=== PATIENT | female | born 1935 | race Caucasian/White ===

== ENCOUNTER → 2016-09-19 | Outpatient (CLI) | payer MEDICARE, OTHER | END | disposition home or self-care (01) | LOC: LAB.O 10:51 | PROVIDERS: ATTEND Nurse Practitioner Family | DX: M06.9 Rheumatoid arthritis, unspecified (principal); Z79.899 Other long term (current) drug therapy ==

== ENCOUNTER → 2016-10-26 | Outpatient (CLI) | payer MEDICARE, OTHER | END | disposition home or self-care (01) | LOC: GMAJ 10:19 | PROVIDERS: ATTEND Family Medicine | DX: E53.8 Deficiency of other specified B group vitamins (principal) ==

== ENCOUNTER → 2017-01-04 | Outpatient (CLI) | payer MEDICARE, OTHER ==
--- NOTE | 2017-01-04 13:03 | RAD ---
EXAM DESCRIPTION: Knee,Left Complete CLINICAL HISTORY: KNEE PAIN COMPARISON: None. IMPRESSION: 4 standing views of the left knee shows postsurgical changes from knee arthroplasty with cement fixation of the tibial and femoral components. No complicating features are identified. The osseous structures are diffusely osteopenic. Soft tissues are unremarkable. No obvious suprapatellar joint effusion is seen. Electronically signed by: Chad Ruano MD 01/04/2017 1:02 PM CDT
== END ==
LOC: RAD 08:21
PROVIDERS: ATTEND Orthopaedic Surgery
DX: M25.562 Pain in left knee (principal); Z96.652 Presence of left artificial knee joint

== ENCOUNTER → 2017-04-25 | Outpatient (CLI) | payer MEDICARE, OTHER | END | disposition home or self-care (01) | LOC: LAB.O 16:37 | PROVIDERS: ATTEND Nurse Practitioner Family | DX: M06.9 Rheumatoid arthritis, unspecified (principal); Z79.899 Other long term (current) drug therapy ==

== ENCOUNTER → 2017-07-24 | Outpatient (CLI) | payer MEDICARE, OTHER | LOC: LAB.O 14:11 | PROVIDERS: ATTEND Nurse Practitioner Family | DX: M06.9 Rheumatoid arthritis, unspecified (principal); Z79.899 Other long term (current) drug therapy ==

== ENCOUNTER → 2017-07-26 | Outpatient (CLI) | payer MEDICARE, OTHER | LOC: GMAJ 10:37 | PROVIDERS: ATTEND Family Medicine | DX: E53.8 Deficiency of other specified B group vitamins (principal) ==

== ENCOUNTER → 2017-10-22 | Outpatient (CLI) | payer MEDICARE, OTHER | LOC: GMAJS 20:45 | PROVIDERS: ATTEND Physician Assistant | DX: N30.00 Acute cystitis without hematuria (principal) ==

== ENCOUNTER 2017-11-12 13:46 | Emergency (ER) | payer MEDICARE, OTHER ==
[2017-11-12 14:00] VITALS: TEMP 97.4
[2017-11-12] MEDS ORDERED: IBUPROFEN 200 MG TAB PO ONE (14:05)
[2017-11-12] MEDS ORDERED: ETOMIDATE INJECTION 2 MG/ML 20ML VIAL IV ONE (14:52)
--- NOTE | 2017-11-12 14:57 | RAD ---
EXAM DESCRIPTION: Humerus,Left CLINICAL HISTORY: fall COMPARISON: None FINDINGS: 2 view(s) submitted. There is inferior dislocation of the left humerus head. There is a possible fracture of the inferior rim of the glenoid, versus degenerative change. IMPRESSION: Left humerus head dislocation.. Electronically signed by: Rickey Alvarez 11/12/2017 2:56 PM CDT
--- NOTE | 2017-11-12 14:59 | RAD ---
EXAM DESCRIPTION: Shoulder,Left 2 or More Views CLINICAL HISTORY: fall COMPARISON: None FINDINGS: 2 view(s) submitted. Inferior left humerus head dislocation is again seen. There is a probable glenoid fracture. IMPRESSION: Left humerus head dislocation. Probable subtle glenoid fracture. Electronically signed by: Rickey Alvarez 11/12/2017 2:57 PM CDT
[2017-11-12] MEDS ORDERED: MORPHINE SULFATE INJ 10 MG/ML VIAL IV ONE (15:13)
--- NOTE | 2017-11-12 15:34 | RAD ---
EXAM DESCRIPTION: Knee,Left 2 or More Views CLINICAL HISTORY: Fall COMPARISON: 01/04/2017 FINDINGS: 2 view(s) submitted. Prosthetic left knee appears intact and in anatomic alignment. No fracture or dislocation is identified. Bone marrow attenuation is unremarkable. No radiopaque foreign body is identified. IMPRESSION: No acute fracture or dislocation. Electronically signed by: Rickey Alvarez 11/12/2017 3:33 PM CDT
--- NOTE | 2017-11-12 15:35 | RAD ---
EXAM DESCRIPTION: Shoulder,Left 1 View CLINICAL HISTORY: Post reduction COMPARISON: Same day 1410 hours FINDINGS: One view(s) submitted. No definite fracture or dislocation is identified. Bone marrow attenuation is unremarkable. No radiopaque foreign body is identified. IMPRESSION: Successful reduction of left shoulder dislocation. One Electronically signed by: Rickey Alvarez 11/12/2017 3:34 PM CDT
--- NOTE | 2017-11-12 16:19 | ED.PDOC ---
History of Present Illness - General Chief Complaint: Trauma Stated Complaint: fall Time Seen by Provider: 11/12/17 14:00 Source: patient Exam Limitations: no limitations - History of Present Illness Initial Comments: the patient is an 82-year-old female presenting to the emergency room with left shoulder pain after a fall at [facility]. There is some lengthening of the arm. She is neurovascularly intact. There is some deformity of the shoulder. Timing/Duration: 1/2 hour Severity: moderate Improving Factors: nothing Worsening Factors: movement Associated Symptoms: denies symptoms Allergies/Adverse Reactions: Allergies NO KNOWN ALLERGY Allergy (Verified 11/12/17 14:01) Home Medications: Ambulatory Orders Acetaminophen [Tylenol Adult Liquid] 500 mg PO PRN PRN 10/21/13 Alendronate Sodium [Fosamax] 70 mg PO ONCE 10/21/13 Aspirin [Aspirin EC Lo-Dose] 81 mg PO DAILY 10/21/13 Citalopram Hydrobromide 40 mg PO HS 10/21/13 Clonazepam 0.5 mg PO BID 10/21/13 Folic Acid 1 mg PO AM 10/21/13 Ocszmovpwee-Lrgpwtdfpmn-Mju C- [Glucosamine Chondroitin 1] 1 cap PO DAILY Methotrexate Sodium [Methotrexate] 5 mg PO ONCE 10/21/13 Pravastatin Sodium 10 mg PO HS 10/21/13 Primidone 100 mg PO HS 10/21/13 Tramadol HCl 50 mg PO TID 10/21/13 HYDROcodone 5MG/APAP 325MG [[place] 5/325] 1 - 2 tab PO Q4-6H PRN #0 tab 10/27/13 Rivaroxaban [Xarelto] 10 mg PO QD #0 tab 10/27/13 Review of Systems - Review of Systems Constitutional: States: no symptoms reported EENTM: States: no symptoms reported Respiratory: States: no symptoms reported Cardiology: States: no symptoms reported Gastrointestinal/Abdominal: States: no symptoms reported Genitourinary: States: no symptoms reported Musculoskeletal: States: see HPI Skin: States: no symptoms reported Neurological: States: no symptoms reported Endocrine: States: no symptoms reported All other Systems: No Change from Baseline Past Medical History (General) - Patient Medical History Hx Cardiac Disorders: No Hx Congestive Heart Failure: No Hx Diabetes: No Hx Cancer: Yes - ovarian Hx MRSA: No Surgical History: tonsillectomy, Hysterectomy, other - Vaccination History Hx Influenza Vaccination: Yes Hx Pneumococcal Vaccination: Yes - Social History Hx Tobacco Use: No Hx Alcohol Use: No Hx Substance Use: No Hx Substance Use Treatment: No Hx Depression: Yes Hx Physical Abuse: No Hx Emotional Abuse: No - Female History Patient : No Family Medical History - Family History Mother Family History: Unknown Living Status: Hx Family Cancer: Yes Physical Exam - Physical Exam General Appearance: Alert, Comfortable, No apparent distress Eye Exam: bilateral normal Ears, Nose, Throat: hearing grossly normal, normal ENT inspection Neck: supple, normal inspection Respiratory: lungs clear, normal breath sounds, no respiratory distress, no accessory muscle use Cardiovascular/Chest: normal peripheral pulses, no edema, other - regular rate Peripheral Pulses: radial,right: 2+, radial,left: 2+, dorsalis pedis,right: 2+, dorsalis pedis,left: 2+ Gastrointestinal/Abdominal: soft Rectal Exam: deferred Back Exam: no CVA tenderness, no vertebral tenderness Extremity: other - limited range of motion of left shoulder. Mild pain to the anterior knee were she fell. This is on the left. 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 Comments: Vital Signs - 24 hr 11/12/17 11/12/17 11/12/17 13:50 14:54 15:00 Temperature 97.4 F L Pulse Rate [ 70 75 pulse ox] Respiratory 20 24 20 Rate Blood Pressure 220/82 234/96 [Right Arm] O2 Sat by Pulse 95 94 L Oximetry Progress - Progress Progress: 11/12/17 16:16 the patient is a 82-year-old female presenting to the emergency room secondary to a dislocated left shoulder after a fall. X-ray of the shoulder confirms the dislocation. X-ray of the left knee shows no evidence of fracture dislocation. after risks and benefits of the reduction attempts were explained , the patient and family did agree. 8 mg of etomidate were given for moderate sedation. The patient was monitored throughout the procedure. Respiratory therapy was present. The patient was preoxygenated. The shoulder reduced easily with minimal pressure. Postreduction films showed adequate reduction. The patient is neurovascularly intact. At this point in time we are not going to place the patient in a shoulder immobilizer or sling in case she needs to use the arm to stabilize herself to prevent further injuries. She needs to follow up with orthopedics in 2-3 weeks for reevaluation. Motrin or Tylenol use for pain. ER warnings were given for any acute worsening. Departure - Departure Clinical Impression: Shoulder dislocation Qualifiers: Encounter type: initial encounter Laterality: left Qualified Code(s): S43.005A - Unspecified dislocation of left shoulder joint, initial encounter Disposition: Discharge to Home or Self Care Condition: Fair Departure Forms: ED Discharge - Pt. Copy, Patient Portal Self Enrollment Diet: regular diet Activity: no pushing/pulling with affected limb Referrals: Matheus Goff MD [Primary Care Provider] - 1-2 Weeks Home Medications: Ambulatory Orders Acetaminophen [Tylenol Adult Liquid] 500 mg PO PRN PRN 10/21/13 Alendronate Sodium [Fosamax] 70 mg PO ONCE 10/21/13 Aspirin [Aspirin EC Lo-Dose] 81 mg PO DAILY 10/21/13 Citalopram Hydrobromide 40 mg PO HS 10/21/13 Clonazepam 0.5 mg PO BID 10/21/13 Folic Acid 1 mg PO AM 10/21/13 Hobknkcthdj-Sxvstatoays-Lru C- [Glucosamine Chondroitin 1] 1 cap PO DAILY Methotrexate Sodium [Methotrexate] 5 mg PO ONCE 10/21/13 Pravastatin Sodium 10 mg PO HS 10/21/13 Primidone 100 mg PO HS 10/21/13 Tramadol HCl 50 mg PO TID 10/21/13 HYDROcodone 5MG/APAP 325MG [[place] 5/325] 1 - 2 tab PO Q4-6H PRN #0 tab 10/27/13 Rivaroxaban [Xarelto] 10 mg PO QD #0 tab 10/27/13 Additional Instructions: the patient is a 82-year-old female presenting to the emergency room secondary to a dislocated left shoulder after a fall. X-ray of the shoulder confirms the dislocation. X-ray of the left knee shows no evidence of fracture dislocation. the patient underwent moderate sedation with etomidate. The shoulder reduced easily with minimal pressure. Postreduction films showed adequate reduction. The patient is neurovascularly intact. At this point in time we are not going to place the patient in a shoulder immobilizer or sling in case she needs to use the arm to stabilize herself to prevent further injuries. She needs to follow up with orthopedics in 2-3 weeks for reevaluation. Motrin or Tylenol use for pain. ER warnings were given for any acute worsening.
[2017-11-12 16:32] VITALS: BP 179/65; O2SAT 96
== END 2017-11-12 16:32 | disposition home or self-care (01) ==
LOC: ER 13:46
DX: S43.035A Inferior dislocation of left humerus, initial encounter (principal); S80.02XA Contusion of left knee, initial encounter; F32.9 Major depressive disorder, single episode, unspecified; Z85.43 Personal history of malignant neoplasm of ovary; W19.XXXA Unspecified fall, initial encounter; Y92.513 Shop (commercial) as the place of occurrence of the external cause
CPT/HCPCS: 73020; 73030; 73060; 73560; 94770; J2270

== ENCOUNTER → 2017-12-24 | Outpatient (CLI) | payer MEDICARE, OTHER | LOC: GMAJ 16:34 | PROVIDERS: ATTEND Family Medicine | DX: N30.00 Acute cystitis without hematuria (principal) ==

== ENCOUNTER → 2017-12-25 | Outpatient (CLI) | payer MEDICARE, OTHER | LOC: YCHH 10:33 | PROVIDERS: ATTEND Family Medicine | DX: M06.9 Rheumatoid arthritis, unspecified (principal); D51.0 Vitamin B12 deficiency anemia due to intrinsic factor deficiency; E78.5 Hyperlipidemia, unspecified; E55.9 Vitamin D deficiency, unspecified; D64.9 Anemia, unspecified ==

== ENCOUNTER → 2018-01-10 | Outpatient (CLI) | payer MEDICARE, OTHER ==
--- NOTE | 2018-01-11 08:08 | MRI ---
Study: MRI of the Left Shoulder. Indication: SPRAIN OF LEFT ROTATOR CUFF CAPSULE Technique: Multiplanar, multi sequence MRI of the left shoulder was obtained without intravenous contrast. Comparison: None. 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 Type II acromion with mild lateral downsloping as well as mild inferior downsloping anterior margin. Small volume subacromial/subdeltoid bursal fluid. Full-thickness tearing anterior two thirds supraspinatus tendon insertion with high-grade articular tearing throughout the remainder of the supraspinatus tendon and anterior half of the infraspinatus tendon. Torn articular fibers retracted to the level of the mid acromion. Subscapularis tendinosis. Teres minor tendon intact. Mild atrophy and grade 1 fatty infiltration rotator cuff musculature. Long head biceps tendinosis. Circumferential labral truncation noted. Humeral head normally located. There is marrow edema at the greater tuberosity which may contusive related. No conventional Hill-Sachs fracture identified. Moderate-sized glenohumeral joint effusion with mild osteoarthritis. There is marrow edema in the anterior inferior glenoid. This can indicate sequela of an osseous Bankart lesion or occult overlying grade 4 chondral loss. A sprain of the inferior glenohumeral ligament noted which is edematous and slightly attenuated. Impression: Full-thickness tearing anterior two thirds supraspinatus tendon with high-grade articular tearing remainder of the supraspinatus tendon and anterior half infraspinatus tendon. Subscapularis tendinosis. Mild atrophy and grade 1 fatty infiltration rotator cuff musculature. Long head biceps tendinosis. Marrow edema lateral margin humeral head which may be contusive in etiology or reactive to the rotator cuff tendon tearing. No conventional Hill-Sachs fracture identified. Mild marrow edema anterior inferior glenoid which could indicate sequela of an osseous Bankart lesion/contusion or occult overlying grade 4 chondral loss. The humeral head is normally located. Circumferential labral truncation noted. Small glenohumeral joint effusion with mild osteoarthritis. Inferior glenohumeral ligament sprain. 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 Electronically signed by: Fernando Peck MD 01/11/2018 8:06 AM CDT
== END ==
LOC: MRI 09:00
PROVIDERS: ATTEND Family Medicine
DX: M75.102 Unspecified rotator cuff tear or rupture of left shoulder, not specified as traumatic (principal); M19.012 Primary osteoarthritis, left shoulder

== ENCOUNTER → 2018-03-18 | Outpatient (CLI) | payer MEDICARE, OTHER | LOC: LAB.O 15:08 | PROVIDERS: ATTEND Nurse Practitioner Family | DX: M06.9 Rheumatoid arthritis, unspecified (principal); Z79.899 Other long term (current) drug therapy ==

== ENCOUNTER 2018-04-26 07:43 | Emergency (ER) | payer MEDICARE, OTHER ==
[2018-04-26] MEDS ORDERED: SODIUM CHLORIDE 0.9% 1000ML 1,000 ML IVS ONE (07:52)
[2018-04-26] MEDS ORDERED: ONDANSETRON INJ 4 MG/2 ML VIAL IV ONE (07:52)
--- NOTE | 2018-04-26 08:04 | ED.PDOC ---
History of Present Illness - General Chief Complaint: General Stated Complaint: generalized weakness;N/V Time Seen by Provider: 04/26/18 07:49 Source: patient, family - Exam Limitations: no limitations - History of Present Illness Initial Comments: Nimco Burrows 82 y/o feamle brought by EMS with generalized weakness yesterday then had some episodes of nausea/vomiting but no diarrhea early this AM EMS stated noted her to be moving around at home.Denies hematemesis ,melena, abdominal pain. Timing/Duration: 24 hours Severity: moderate Improving Factors: nothing Worsening Factors: eating Associated Symptoms: loss of appetite Allergies/Adverse Reactions: Allergies NO KNOWN ALLERGY Allergy (Verified 11/12/17 14:01) Home Medications: Ambulatory Orders Acetaminophen [Tylenol Adult Liquid] 500 mg PO PRN PRN 10/21/13 Alendronate Sodium [Fosamax] 70 mg PO ONCE 10/21/13 Aspirin [Aspirin EC Lo-Dose] 81 mg PO DAILY 10/21/13 Citalopram Hydrobromide 40 mg PO HS 10/21/13 Clonazepam 0.5 mg PO BID 10/21/13 Folic Acid 1 mg PO AM 10/21/13 Ruxslrfrjcp-Jukxnnkoqhj-Xyh C- [Glucosamine Chondroitin 1] 1 cap PO DAILY Methotrexate Sodium [Methotrexate] 5 mg PO ONCE 10/21/13 Pravastatin Sodium 10 mg PO HS 10/21/13 Primidone 100 mg PO HS 10/21/13 Tramadol HCl 50 mg PO TID 10/21/13 HYDROcodone 5MG/APAP 325MG [[place] 5/325] 1 - 2 tab PO Q4-6H PRN #0 tab 10/27/13 Rivaroxaban [Xarelto] 10 mg PO QD #0 tab 10/27/13 Ondansetron [Zofran Odt] 4 mg PO Q8HRS PRN #10 tab 04/26/18 Review of Systems - Review of Systems Constitutional: States: no symptoms reported EENTM: States: no symptoms reported Respiratory: States: no symptoms reported Cardiology: States: no symptoms reported Gastrointestinal/Abdominal: States: see HPI Genitourinary: States: no symptoms reported Musculoskeletal: States: no symptoms reported Skin: States: no symptoms reported Neurological: States: no symptoms reported Past Medical History (General) - Patient Medical History Hx Cardiac Disorders: No Hx Congestive Heart Failure: No Hx Diabetes: No Hx Cancer: Yes - ovarian Hx MRSA: No Surgical History: other - hysterectomy,knee left - Vaccination History Hx Influenza Vaccination: Yes Hx Pneumococcal Vaccination: Yes - Social History Hx Tobacco Use: No Hx Alcohol Use: No Hx Substance Use: No Hx Substance Use Treatment: No Hx Depression: Yes Hx Physical Abuse: No Hx Emotional Abuse: No - Activities of Daily Living Patient Lives Alone: No Grooming Ability: Independent Eating (Feeding) Ability: Independent Toileting Ability: Independent - Female History Patient : No Family Medical History - Family History Mother Family History: Unknown Living Status: Hx Family Cancer: Yes - mom-colon ca;dad-brain ca Physical Exam - Physical Exam General Appearance: Alert, Comfortable, No apparent distress Eye Exam: bilateral normal Ears, Nose, Throat: hearing grossly normal, normal ENT inspection, normal pharynx Neck: non-tender, full range of motion, supple, normal inspection Respiratory: chest non-tender, lungs clear, normal breath sounds Cardiovascular/Chest: normal peripheral pulses, regular rate, rhythm, no murmur Peripheral Pulses: radial,right: 2+, radial,left: 2+ Gastrointestinal/Abdominal: normal bowel sounds, non tender, soft, no organomegaly Back Exam: no CVA tenderness, no vertebral tenderness Extremity: no pedal edema, no calf tenderness Neurologic: no motor/sensory deficits, alert Skin Exam: normal color, warm/dry Lymphatic: no adenopathy Progress - Progress Progress: 04/26/18 08:43 Vital Signs - 8 hr 04/26/18 04/26/18 07:44 08:41 Temperature 100.3 F H Pulse Rate [ 89 83 Apical] Respiratory 20 18 Rate Blood Pressure 106/85 148/71 [Left Arm] O2 Sat by Pulse 94 L 97 Oximetry - Results/Orders Results/Orders: 04/26/18 07:52 IV Care:Saline Lock per Protoc QSHIFT 04/26/18 08:45 EKG STAT 04/26/18 11:55 Abdoment/Pelvis w/o Contrast [CT] Stat Laboratory Results - last 24 hr 04/26/18 04/26/18 04/26/18 08:18 10:32 11:10 WBC 5.9 RBC 3.82 L Hgb 12.2 Hct 36.9 MCV 96.6 MCH 31.9 H MCHC 33.1 RDW 14.9 H Plt Count 163 MPV 7.2 L Absolute Neuts (auto) 5.00 Absolute Lymphs (auto) 0.30 L Absolute Monos (auto) 0.50 Absolute Eos (auto) 0.00 Absolute Basos (auto) 0.00 Neutrophils % 85.9 H Lymphocytes % 5.4 L Monocytes % 7.8 Eosinophils % 0.5 L Basophils % 0.4 PT 9.3 INR 0.93 PTT (SP) 23.9 Sodium 137 Potassium 3.2 L Chloride 103 Carbon Dioxide 27 Anion Gap 10.2 L BUN 14 Creatinine 0.57 L BUN/Creatinine Ratio 24.6 H Random Glucose 108 H Serum Osmolality 274.8 L Calcium 8.7 Magnesium 2.1 Total Bilirubin 0.5 Direct Bilirubin 0.1 Indirect Bilirubin 0.4 AST 42 ALT 28 Alkaline Phosphatase 92 Creatine Kinase 104 CK-MB (CK-2) 0.9 CK-MB (CK-2) % Not Reportable Troponin I 0.11 H* < 0.02 Serum Total Protein 6.4 Albumin 3.7 Lipase 14 L Urine Color Yellow Urine Appearance Clear Urine pH 7.0 Ur Specific [place] 1.015 Urine Protein 30 Urine Glucose (UA) Negative Urine Ketones Trace Urine Blood Large H Urine Nitrite Negative Urine Bilirubin Negative Urine Urobilinogen 0.2 Ur Leukocyte Esterase Negative Urine RBC 10-20 H Urine WBC 0 Ur Epithelial Cells 3-5 Urine Bacteria Rare No further troponin elevation after repeat test went back to normal level - EKG/XRAY/CT EKG: Sinus, nonspecific ST T wave Chg - anterior leads Comments: HR-83 XRAY: chest - and abdomen -no acute findings noted CT Ordered: Yes - abd/p-no acute findings Departure - Departure Clinical Impression: Hypokalemia due to loss of potassium Nausea & vomiting Qualifiers: Vomiting type: unspecified Vomiting Intractability: non-intractable Qualified Code(s): R11.2 - Nausea with vomiting, unspecified Time of Disposition: 13:41 Disposition: Discharge to Home or Self Care Condition: Fair Departure Forms: ED Discharge - Pt. Copy, Patient Portal Self Enrollment Instructions: Nausea and Vomiting, Adult (DC) Diet: bland diet, other - AVOID GREASY SPICY FOODS until better ;May have chicken/beef broth Referrals: Matheus Goff MD [Primary Care Provider] - 1-2 Weeks Prescriptions: Ondansetron [Zofran Odt] 4 mg PO Q8HRS PRN #10 tab PRN Reason: Nausea Home Medications: Ambulatory Orders Acetaminophen [Tylenol Adult Liquid] 500 mg PO PRN PRN 10/21/13 Alendronate Sodium [Fosamax] 70 mg PO ONCE 10/21/13 Aspirin [Aspirin EC Lo-Dose] 81 mg PO DAILY 10/21/13 Citalopram Hydrobromide 40 mg PO HS 10/21/13 Clonazepam 0.5 mg PO BID 10/21/13 Folic Acid 1 mg PO AM 10/21/13 Ayuihjjiqeo-Czdduvfgmxt-Sdi C- [Glucosamine Chondroitin 1] 1 cap PO DAILY Methotrexate Sodium [Methotrexate] 5 mg PO ONCE 10/21/13 Pravastatin Sodium 10 mg PO HS 10/21/13 Primidone 100 mg PO HS 10/21/13 Tramadol HCl 50 mg PO TID 10/21/13 HYDROcodone 5MG/APAP 325MG [[place] 5/325] 1 - 2 tab PO Q4-6H PRN #0 tab 10/27/13 Rivaroxaban [Xarelto] 10 mg PO QD #0 tab 10/27/13 Ondansetron [Zofran Odt] 4 mg PO Q8HRS PRN #10 tab 04/26/18 Additional Instructions: Return to emergency room if symptoms worsens
[2018-04-26 08:05] VITALS: TEMP 100.3
--- NOTE | 2018-04-26 08:33 | RAD ---
EXAM DESCRIPTION: Abdomen 1 View CLINICAL HISTORY: N/V COMPARISON: None. IMPRESSION: Single AP portable supine view of the abdomen shows air-filled nondilated loops of small bowel and colon throughout the abdomen. Bowel gas pattern is nonspecific and nonobstructive. No abnormal calcifications are seen. Moderate to severe disc degenerative changes and dextrocurvature of the lumbar spine is seen. Surgical clips in the mid to lower abdomen and pelvis is seen. Electronically signed by: Chad Ruano MD 04/26/2018 8:32 AM [facility]
[2018-04-26] MEDS ORDERED: ASPIRIN (CHEWABLE) 81 MG TAB PO ONE (08:44)
--- NOTE | 2018-04-26 09:19 | RAD ---
EXAM DESCRIPTION: Chest,1 View CLINICAL HISTORY: N/V COMPARISON: None. IMPRESSION: Single AP portable upright view of the chest shows mild enlargement of the cardiac silhouette without pulmonary vascular congestion. Tortuosity the thoracic aorta is seen. Lungs are normally aerated and clear. No obvious pleural effusion or pneumothorax is seen. Electronically signed by: Chad Ruano MD 04/26/2018 9:18 AM [facility]
[2018-04-26] MEDS ORDERED: SODIUM CHLORIDE 0.9% 500ML 500 ML IVS ONE (11:36)
--- NOTE | 2018-04-26 13:31 | CT ---
EXAM DESCRIPTION: Abdomen t/Pelvis w/o Contrast CLINICAL HISTORY: 82 years, 82 years, Female, Female, hematuria/N/V COMPARISON: October 12, 2009 TECHNIQUE: CT of the abdomen and pelvis is performed according to our non contrast protocol This exam was performed according to our departmental dose-optimization program, which includes automated exposure control, adjustment of the mA and/or kV according to patient size and/or use of iterative reconstruction technique. FINDINGS: Left lung is essentially clear and a patchy infiltrate or atelectasis in the medial posterior right lung base without pleural effusion is present above the level of the costophrenic angle. A small sliding-type hiatal hernia is noted. The unenhanced liver is upper normal in size with large distended gallbladder without obvious stones or ductal dilation. A normal sized spleen with a tiny granulomatous calcification anteriorly is noted. The unenhanced pancreas is grossly unremarkable without obvious cystic or solid disease. Small normal adrenal glands are noted. The right kidney and left kidney demonstrate no evidence of intrarenal stone disease or hydronephrosis. No obvious cystic or solid mass on unenhanced renal imaging is noted. Aortic calcification without aneurysm is evident and significant retroperitoneal adenopathy is not apparent. Small and large bowel caliber is normal. Considerable stool in the rectum sigmoid and left colon suggests an element of constipation. Left-sided colonic diverticulosis is present. Moderate motion artifact suggest a significant bowel peristalsis is present. No inflammatory changes in the left lower quadrant or right lower quadrant is noted in no evidence of obstruction seen. The bladder is normally distended and the vaginal cuff normal in appearance with absence of the uterus. No adnexal masses or pelvic fluid collections or inguinal hernias or pelvic sidewall disease noted. No abdominal or pelvic ascites is noted. The anterior abdominal wall is intact. Moderately advanced degenerative changes and dextroscoliosis of the lumbar spine with multilevel disc space narrowing is apparent. Bony destructive changes are not apparent. IMPRESSION: 1. Noncontrast imaging demonstrates normal renal outlines without evidence of stone disease or hydronephrosis or bladder abnormality. 2. Degenerative changes and dextroscoliosis of the lumbar spine without evidence of fracture or bony metastatic disease. 3. Patchy infiltrate in the medial posterior right lower lobe without pleural effusion without extension into the posterior costophrenic angle. The left lung is clear. 4. Stool-filled rectum and sigmoid and left colon with diverticulosis suggesting an element of constipation but no evidence of obstruction. Electronically signed by: Kaiser Stevenson MD 04/26/2018 1:29 PM [facility]
[2018-04-26] MEDS ORDERED: IBUPROFEN 200 MG TAB PO ONE (14:37)
[2018-04-26] MEDS ORDERED: ACETAMINOPHEN 325 MG TAB PO ONE (14:51)
[2018-04-26 14:59] VITALS: BP 153/82; O2SAT 94
== END 2018-04-26 15:45 | disposition home or self-care (01) ==
LOC: ER 07:43
DX: R11.2 Nausea with vomiting, unspecified (principal); E87.6 Hypokalemia; F32.9 Major depressive disorder, single episode, unspecified; Z85.43 Personal history of malignant neoplasm of ovary; Z79.82 Long term (current) use of aspirin; Z79.899 Other long term (current) drug therapy
CPT/HCPCS: 36415; 71045; 74018; 74176; 80048; 80076; 81001; 82550; 82553; 83690; 84484; 85025; 85610; 85730; 87502; 93005; J2405; J7030; J7040

== ENCOUNTER → 2018-05-14 | Outpatient (CLI) | payer MEDICARE, OTHER | LOC: LAB.O 13:04 | PROVIDERS: ATTEND Nurse Practitioner Family | DX: M06.9 Rheumatoid arthritis, unspecified (principal) ==

== ENCOUNTER → 2019-01-30 | Outpatient (CLI) | payer MEDICARE, OTHER | LOC: LAB.O 12:03 | PROVIDERS: ATTEND Nurse Practitioner | DX: M06.9 Rheumatoid arthritis, unspecified (principal) ==

== ENCOUNTER 2019-08-04 18:08 | Emergency (ER) | payer MEDICARE, OTHER ==
[2019-08-04 18:53] VITALS: TEMP 98.1
--- NOTE | 2019-08-04 19:53 | CT ---
PROCEDURE: Cervical Spine CLINICAL HISTORY: 83 years Female fall in [employer], rt frontal scalp injury COMPARISON: None. TECHNIQUE: Contiguous axial images obtained through the cervical spine without IV contrast. Coronal and sagittal reformatted images obtained. This exam was performed according to our department optimization program which includes automated exposure control, adjustment of the mA and/or kv according to patient size and/or use of iterative reconstruction technique. FINDINGS: There is mild anterolisthesis of C4 on C5 which appears degenerative. Narrowing of the disc interspaces throughout the cervical spine with marginal osteophytosis and facet arthropathy. 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 No prevertebral soft tissue swelling. There is right neural foraminal narrowing at C2-3. Bilateral neural foraminal stenosis, severe, at C3-4. Marked facet arthropathy at C4-5 on the left with severe left and moderate right neural foraminal stenosis. C5-6 severe bilateral neural foraminal stenosis. C6-7: Bilateral neural foraminal stenosis. No acute fracture identified. IMPRESSION: No acute cervical spinal fracture is identified. Moderate spondylosis with neural foraminal stenosis at multiple levels Electronically signed by: Balbina Adan MD 08/04/2019 7:52 PM [employer]
--- NOTE | 2019-08-04 19:55 | CT ---
PROCEDURE: Head CLINICAL HISTORY: 83 years Female fall in [employer], rt frontal scalp injury COMPARISON: None. TECHNIQUE: Contiguous axial CT images obtained through the brain without IV contrast. This exam was performed according to our department optimization program which includes automated exposure control, adjustment of the mA and/or kv according to patient size and/or use of iterative reconstruction technique. FINDINGS: The ventricles and sulci are prominent consistent with atrophic changes. Microvascular ischemic changes. No midline shift or mass effect. No mass lesions. No acute hemorrhage. Atherosclerotic calcifications. 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 Soft tissue swelling over the right frontal scalp. No fluid or significant mucosal thickening in the visualized paranasal sinuses. No depressed calvarial fractures. IMPRESSION: Small amount of soft tissue swelling over the right frontal calvarium No acute intracranial abnormality is identified. Generalized atrophy with microvascular ischemic changes. Electronically signed by: Balbina Adan MD 08/04/2019 7:53 PM PHONE TRIAGE SPECIALIST
--- NOTE | 2019-08-04 20:09 | ED.PDOC ---
History of Present Illness - General Time Seen by Provider: 08/04/19 18:50 Source: patient Exam Limitations: no limitations - History of Present Illness Initial Comments: The patient is an 83-year-old female presented emergency room after having tripped and fallen at [facility]. The patient hit her head on the floor sustaining a frontal scalp. No loss of consciousness. No neurological changes. No new neck pain. No other injuries. The patient is pleasant and cooperative. Timing/Duration: 1/2 hour Severity: moderate Improving Factors: nothing Worsening Factors: nothing Associated Symptoms: headaches - Mild Allergies/Adverse Reactions: Allergies NO KNOWN ALLERGY Allergy (Verified 11/12/17 14:01) Home Medications: Ambulatory Orders Acetaminophen [Tylenol Adult Liquid] 500 mg PO PRN PRN 10/21/13 Alendronate Sodium [Fosamax] 70 mg PO ONCE 10/21/13 Aspirin [Aspirin EC Lo-Dose] 81 mg PO DAILY 10/21/13 Citalopram Hydrobromide 40 mg PO HS 10/21/13 Clonazepam 0.5 mg PO BID 10/21/13 Folic Acid 1 mg PO AM 10/21/13 Kbyhdqymatx-Hxtfylfawqy-Knf C- [Glucosamine Chondroitin 1] 1 cap PO DAILY 10/21/13 Methotrexate Sodium [Methotrexate] 5 mg PO ONCE 10/21/13 Pravastatin Sodium 10 mg PO HS 10/21/13 Primidone 100 mg PO HS 10/21/13 Tramadol HCl 50 mg PO TID 10/21/13 HYDROcodone 5MG/APAP 325MG [[place] 5/325] 1 - 2 tab PO Q4-6H PRN #0 tab 10/27/13 Rivaroxaban [Xarelto] 10 mg PO QD #0 tab 10/27/13 Ondansetron [Zofran Odt] 4 mg PO Q8HRS PRN #10 tab 04/26/18 Review of Systems - Review of Systems Constitutional: States: no symptoms reported EENTM: States: no symptoms reported Respiratory: States: no symptoms reported Cardiology: States: no symptoms reported Gastrointestinal/Abdominal: States: no symptoms reported Genitourinary: States: no symptoms reported Musculoskeletal: States: no symptoms reported Skin: States: see HPI Neurological: States: headache Endocrine: States: no symptoms reported All other Systems: No Change from Baseline Past Medical History (General) - Patient Medical History Hx Cardiac Disorders: No Hx Congestive Heart Failure: No Hx Diabetes: No Hx Cancer: Yes - ovarian Hx MRSA: No - Vaccination History Hx Tetanus, Diphtheria Vaccination: No Hx Influenza Vaccination: Yes Hx Pneumococcal Vaccination: Yes - Social History Hx Tobacco Use: No Hx Chewing Tobacco Use: No Hx Alcohol Use: No Hx Substance Use: No Hx Substance Use Treatment: No Hx Depression: Yes Hx Physical Abuse: No Hx Emotional Abuse: No Hx Suspected Abuse: No - Female History Patient : No Family Medical History - Family History Mother Family History: Unknown Living Status: Hx Family Cancer: Yes - mom-colon ca;dad-brain ca Physical Exam - Physical Exam General Appearance: Alert, Comfortable, No apparent distress Eye Exam: bilateral normal Ears, Nose, Throat: hearing grossly normal, normal pharynx Neck: non-tender, supple Respiratory: lungs clear, normal breath sounds, no respiratory distress, no accessory muscle use Cardiovascular/Chest: normal peripheral pulses, regular rate, rhythm, no edema Peripheral Pulses: radial,right: 2+, radial,left: 2+ Gastrointestinal/Abdominal: non tender, soft Rectal Exam: deferred Back Exam: no vertebral tenderness Extremity: non-tender, no pedal edema, normal capillary refill Neurologic: metal pourer II-XII nml as tested, alert, normal mood/affect, oriented x 3 Skin Exam: normal color - With the exception of the right forehead hematoma Comments: Vital Signs - 24 hr 08/04/19 08/04/19 18:46 19:09 Temperature 98.1 F Pulse Rate [ 65 59 L Pulse Ox] Respiratory 20 14 Rate Blood Pressure 172/64 171/71 [R Arm] O2 Sat by Pulse [address] scan of the head shows no evidence of any acute intracranial pathology. The right forehead hematoma is noted. Progress - Progress Progress: 08/04/19 20:08 The patient is a 83-year-old female who tripped and fell at [facility]. The patient has sustained a right forehead hematoma. No laceration. CT scan of the head indicates no acute intracranial pathology. CT scan of the cervical spine shows no acute bony pathology, only extensive degenerative changes. Motrin or Tylenol can be used for discomfort if needed. ER warnings are given for any significant worsening. Keep routine follow-up with primary care doctor otherwise. [email or web address] [email or web address] [id number] Departure - Departure Clinical Impression: Traumatic hematoma of forehead Qualifiers: Encounter type: initial encounter Qualified Code(s): S00.83XA - Contusion of other part of head, initial encounter Disposition: Discharge to Home or Self Care Condition: Fair Instructions: Contusion (DC) Diet: regular diet Activity: increase activity as tolerated Referrals: Matheus Goff MD [Primary Care Provider] - 1-2 Weeks Home Medications: Ambulatory Orders Acetaminophen [Tylenol Adult Liquid] 500 mg PO PRN PRN 10/21/13 Alendronate Sodium [Fosamax] 70 mg PO ONCE 10/21/13 Aspirin [Aspirin EC Lo-Dose] 81 mg PO DAILY 10/21/13 Citalopram Hydrobromide 40 mg PO HS 10/21/13 Clonazepam 0.5 mg PO BID 10/21/13 Folic Acid 1 mg PO AM 10/21/13 Fcljlshzelj-Rsajoiyhvtj-Qih C- [Glucosamine Chondroitin 1] 1 cap PO DAILY 0 10/21/13 Methotrexate Sodium [Methotrexate] 5 mg PO ONCE 10/21/13 Pravastatin Sodium 10 mg PO HS 10/21/13 Primidone 100 mg PO HS 10/21/13 Tramadol HCl 50 mg PO TID 10/21/13 HYDROcodone 5MG/APAP 325MG [[place] 5/325] 1 - 2 tab PO Q4-6H PRN #0 tab 10/27/13 Rivaroxaban [Xarelto] 10 mg PO QD #0 tab 10/27/13 Ondansetron [Zofran Odt] 4 mg PO Q8HRS PRN #10 tab 04/26/18 Additional Instructions: The patient is a 83-year-old female who tripped and fell at [facility]. The patient has sustained a right forehead hematoma. No laceration. CT scan of the head indicates no acute intracranial pathology. CT scan of the cervical spine shows no acute bony pathology, only extensive degenerative changes. Motrin or Tylenol can be used for discomfort if needed. ER warnings are given for any significant worsening. Keep routine follow-up with primary care doctor otherwise.
[2019-08-04 20:26] VITALS: BP 179/79; O2SAT 97
== END 2019-08-04 20:26 | disposition home or self-care (01) ==
LOC: ER 18:08
DX: S00.83XA Contusion of other part of head, initial encounter (principal); M47.812 Spondylosis without myelopathy or radiculopathy, cervical region; F32.9 Major depressive disorder, single episode, unspecified; Z85.43 Personal history of malignant neoplasm of ovary; W01.0XXA Fall on same level from slipping, tripping and stumbling without subsequent striking against object, initial encounter; Y92.512 Supermarket, store or market as the place of occurrence of the external cause; Z79.82 Long term (current) use of aspirin; Z79.899 Other long term (current) drug therapy

== ENCOUNTER → 2019-08-05 | Outpatient (CLI) | payer MEDICARE, OTHER | LOC: NC 13:05 | PROVIDERS: ATTEND Family Medicine | DX: R30.0 Dysuria (principal) ==

== ENCOUNTER → 2019-10-09 | Outpatient (CLI) | payer MEDICARE, OTHER | LOC: GMAJ 15:38 | PROVIDERS: ATTEND Family Medicine | DX: R30.0 Dysuria (principal) ==

== ENCOUNTER → 2019-10-24 | Outpatient (CLI) | payer MEDICARE, OTHER | LOC: NC 17:14 | PROVIDERS: ATTEND Family Medicine | DX: R30.0 Dysuria (principal) ==

== ENCOUNTER 2019-12-19 15:14 | Emergency (ER) | payer MEDICARE, OTHER ==
--- NOTE | 2019-12-19 16:14 | ED.PDOC ---
History of Present Illness - General Chief Complaint: Problem Stated Complaint: No urine output x 24 hours Time Seen by Provider: 12/19/19 16:10 Additional Information: Patient is an 84-year-old female who presents to the ED with chief complaint of urinary retention. Patient indicates that she has not been able to void all day today. Patient denies dysuria, abdominal pain, fever, chills, nausea, vomiting. Patient indicates she has never had this happen to her before. She indicates she does not have a history of frequent UTIs. Patient is requesting to have a catheter placed because she feels as if she needs to go to the bathroom but cannot. Patient's daughter is in the room with her and she indicates the patient is slightly more confused than normal but patient does have a history of dementia. - History of Present Illness Allergies/Adverse Reactions: Allergies NO KNOWN ALLERGY Allergy (Verified 11/12/17 14:01) Home Medications: Ambulatory Orders Acetaminophen [Tylenol Adult Liquid] 500 mg PO PRN PRN 10/21/13 Alendronate Sodium [Fosamax] 70 mg PO ONCE 10/21/13 Aspirin [Aspirin EC Lo-Dose] 81 mg PO DAILY 10/21/13 Citalopram Hydrobromide 40 mg PO HS 10/21/13 Clonazepam 0.5 mg PO BID 10/21/13 Folic Acid 1 mg PO AM 10/21/13 Xmqcpwtthjh-Jbknmnlirio-Oyx C- [Glucosamine Chondroitin 1] 1 cap PO DAILY 10/21/13 Methotrexate Sodium [Methotrexate] 5 mg PO ONCE 10/21/13 Pravastatin Sodium 10 mg PO HS 10/21/13 Primidone 100 mg PO HS 10/21/13 Tramadol HCl 50 mg PO TID 10/21/13 HYDROcodone 5MG/APAP 325MG [[place] 5/325] 1 - 2 tab PO Q4-6H PRN #0 tab 10/27/13 Rivaroxaban [Xarelto] 10 mg PO QD #0 tab 10/27/13 Ondansetron [Zofran Odt] 4 mg PO Q8HRS PRN #10 tab 04/26/18 Review of Systems - Review of Systems Constitutional: States: no symptoms reported. Denies: chills, fever, weakness EENTM: States: no symptoms reported Respiratory: States: no symptoms reported. Denies: cough, short of breath Cardiology: States: no symptoms reported. Denies: chest pain, palpitations Gastrointestinal/Abdominal: States: no symptoms reported. Denies: abdominal pain, nausea, vomiting Genitourinary: States: see HPI Musculoskeletal: States: no symptoms reported Skin: States: no symptoms reported Neurological: States: no symptoms reported All other Systems: Reviewed and Negative Past Medical History (General) - Patient Medical History Hx Dementia: Yes Hx Cardiac Disorders: No Hx Congestive Heart Failure: No Hx Hypertension: Yes Hx Diabetes: No Hx Cancer: Yes - ovarian Hx MRSA: No - Vaccination History Hx Tetanus, Diphtheria Vaccination: Yes Hx Influenza Vaccination: No Hx Pneumococcal Vaccination: Yes - Social History Hx Tobacco Use: No Hx Chewing Tobacco Use: No Hx Alcohol Use: Yes Hx Substance Use: No Hx Substance Use Treatment: No Hx Depression: Yes Hx Physical Abuse: No Hx Emotional Abuse: No Hx Suspected Abuse: No - Female History Patient is a Female of Child Bearing Age (10 -59 yrs old): No Patient : No Family Medical History - Family History Mother Family History: Unknown Living Status: Hx Family Cancer: Yes - mom-colon ca;dad-brain ca Physical Exam - Physical Exam General Appearance: Alert, Comfortable, Frail, Other - Very thin body habitus, patient is generally weak Neck: non-tender, supple Cardiovascular/Respiratory: regular rate, rhythm, no M/R/G, normal peripheral pulses, no JVD, normal breath sounds, no respiratory distress Gastrointestinal/Abdominal: normal bowel sounds, non tender, soft, no organomegaly, other - Mild bladder fullness with mild tenderness to palpation Back Exam: normal inspection, no CVA tenderness Extremity: normal range of motion, non-tender, normal inspection Neurologic: [place]anger II-XII nml as tested, no motor/sensory deficits, alert, normal mood/affect, other - Patient is oriented to person place but not to time Skin Exam: normal color, warm/dry Progress - Progress Progress: 12/19/19 16:17 Differential diagnosis includes but is not limited to UTI, acute urinary retention, electrolyte disorder, dehydration. 12/19/19 17:09 Patient's labs are unremarkable and she was able to void approximately 200 mL's on her own at the bedside commode. Clinically I suspect patient is volume depleted as the reason why she has not been able to urinate. Will give IV fluids in the ED and discharged home under the care of patient's daughter and patient to rest, hydrate, and follow-up with her PCP this week for reevaluation. Patient is not altered in ED and is able to hold a conversation and there is no indication for advanced imaging today. Vital signs stable, patient is NAD and looks clinically well and I believe is safe for discharge with outpatient follow-up. Follow-up instructions, discharge instructions and return to ED precautions discussed with patient. Patient voices understanding and willingness to comply with instructions. All laboratory and radiographic results have been discussed with the patient, and all questions answered. Patient is happy with plan. - Results/Orders Results/Orders: 12/19/19 16:11 IV:Start .ONCE Laboratory Results - last 24 hr 12/19/19 12/19/19 12/19/19 16:36 16:36 16:36 WBC 7.4 RBC 3.73 L Hgb 12.4 Hct 36.7 MCV 98.5 MCH 33.4 H MCHC 33.9 RDW 14.2 Plt Count 244 MPV 7.5 Absolute Neuts (auto) 6.20 Absolute Lymphs (auto) 0.80 L Absolute Monos (auto) 0.40 Absolute Eos (auto) 0.10 Absolute Basos (auto) 0.00 Neutrophils % 83.6 H Lymphocytes % 10.2 L Monocytes % 4.9 Eosinophils % 0.7 L Basophils % 0.6 Sodium 138 Potassium 3.5 L Chloride 101 Carbon Dioxide 28 Anion Gap 12.5 BUN 19 H Creatinine 0.67 BUN/Creatinine Ratio 28.4 H Random Glucose 102 Serum Osmolality 278.1 Calcium 8.8 Total Bilirubin 0.5 AST 34 ALT 20 Alkaline Phosphatase 108 Serum Total Protein 6.6 Albumin 3.8 Globulin 2.8 Albumin/Globulin Ratio 1.4 Urine Color Yellow Urine Appearance Clear Urine pH 6.0 Ur Specific [place] 1.025 Urine Protein Trace Urine Glucose (UA) Negative Urine Ketones Trace Urine Blood Negative Urine Nitrite Negative Urine Bilirubin Negative Urine Urobilinogen 0.2 Ur Leukocyte Esterase Negative Urine RBC 0 Urine WBC 0 Ur Epithelial Cells 0 Urine Bacteria 0 Departure - Departure Clinical Impression: Volume depletion Time of Disposition: 17:12 Disposition: Discharge to Home or Self Care Departure Forms: ED Discharge - Pt. Copy, Patient Portal Self Enrollment Instructions: Dehydration, Adult (DC) Referrals: Matheus Goff MD [Primary Care Provider] - 1-5 Days Home Medications: Ambulatory Orders Acetaminophen [Tylenol Adult Liquid] 500 mg PO PRN PRN 10/21/13 Alendronate Sodium [Fosamax] 70 mg PO ONCE 10/21/13 Aspirin [Aspirin EC Lo-Dose] 81 mg PO DAILY 10/21/13 Citalopram Hydrobromide 40 mg PO HS 10/21/13 Clonazepam 0.5 mg PO BID 10/21/13 Folic Acid 1 mg PO AM 10/21/13 Rhlncgfpjxw-Yqqixcjciwx-Mtf C- [Glucosamine Chondroitin 1] 1 cap PO DAILY 10/21/13 Methotrexate Sodium [Methotrexate] 5 mg PO ONCE 10/21/13 Pravastatin Sodium 10 mg PO HS 10/21/13 Primidone 100 mg PO HS 10/21/13 Tramadol HCl 50 mg PO TID 10/21/13 HYDROcodone 5MG/APAP 325MG [[place] 5/325] 1 - 2 tab PO Q4-6H PRN #0 tab 10/27/13 Rivaroxaban [Xarelto] 10 mg PO QD #0 tab 10/27/13 Ondansetron [Zofran Odt] 4 mg PO Q8HRS PRN #10 tab 04/26/18
[2019-12-19] MEDS ORDERED: SODIUM CHLORIDE 0.9% 1000ML 500 ML IVS ONE (17:09)
[2019-12-19] MEDS ORDERED: hydrALAZINE HCl 20 MG/ML VIAL IV ONE (18:22)
[2019-12-19] MEDS ORDERED: hydrALAZINE HCl 20 MG/ML VIAL ONE (18:31)
[2019-12-19 19:25] VITALS: O2SAT 94
[2019-12-19 19:26] VITALS: BP 185/72; TEMP 97.9
== END 2019-12-19 19:25 | disposition home or self-care (01) ==
LOC: ER 15:14
DX: E86.9 Volume depletion, unspecified (principal); R33.9 Retention of urine, unspecified; I10 Essential (primary) hypertension; F03.90 Unspecified dementia, unspecified severity, without behavioral disturbance, psychotic disturbance, mood disturbance, and anxiety
CPT/HCPCS: 36415; 80053; 81001; 85025; J0360; J7030

== ENCOUNTER → 2020-01-20 | Outpatient (CLI) | payer MEDICARE, OTHER | LOC: HHH 14:11 | PROVIDERS: ATTEND Family Medicine | DX: N39.0 Urinary tract infection, site not specified (principal) ==

== ENCOUNTER → 2020-03-26 | Outpatient (CLI) | payer MEDICARE, OTHER | LOC: HHH 14:11 | PROVIDERS: ATTEND Family Medicine | DX: N39.0 Urinary tract infection, site not specified (principal); Z87.440 Personal history of urinary (tract) infections ==

== ENCOUNTER → 2020-04-30 | Outpatient (CLI) | payer MEDICARE, OTHER | LOC: GT 10:05 | PROVIDERS: ATTEND Family Medicine | DX: U07.1 COVID-19 (principal); R09.02 Hypoxemia; R71.8 Other abnormality of red blood cells ==

== ENCOUNTER → 2020-05-04 | Outpatient (CLI) | payer MEDICARE, OTHER | LOC: GT 08:16 | PROVIDERS: ATTEND Family Medicine | DX: R09.02 Hypoxemia (principal); R71.8 Other abnormality of red blood cells ==

== ENCOUNTER → 2020-05-20 | Outpatient (CLI) | payer MEDICARE, OTHER | LOC: GT 15:32 | PROVIDERS: ATTEND Family Medicine | DX: N39.0 Urinary tract infection, site not specified (principal) ==

== ENCOUNTER → 2020-07-22 | Outpatient (CLI) | payer MEDICARE, OTHER | LOC: GT 13:11 | PROVIDERS: ATTEND Family Medicine | DX: N39.0 Urinary tract infection, site not specified (principal); E78.2 Mixed hyperlipidemia; R31.29 Other microscopic hematuria ==